=== PATIENT | female | born 2000 | race Caucasian/White ===

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

== ENCOUNTER → 2020-01-03 | Outpatient (CLI) | payer OTHER ==
[2020-01-03 09:01] LABS: BASOPHILS ABSOLUTE AUTO 0.02 K/mm3 (0.00-0.23); BASOPHILS PERCENT AUTO 0 % (0-2); EOSINOPHILS ABSOLUTE AUTO 0.02 K/mm3 (0.00-0.68); EOSINOPHILS PERCENT AUTO 0 % (0-6); Hematocrit 38.7 % (33.0-51.0); Hemoglobin 13.9 g/dL (11.5-16.0); IMMATURE GRAN ABSOLUTE AUTO 0.04 K/mm3 (0.00-0.10); IMMATURE GRAN PERCENT AUTO 0 % (0-1); LYMPHOCYTES ABSOLUTE AUTO 1.87 K/mm3 (0.84-5.20); LYMPHOCYTES PERCENT AUTO 17 % (21-46); MONOCYTES ABSOLUTE AUTO 0.54 K/mm3 (0.16-1.47); MONOCYTES PERCENT AUTO 5 % (4-13); Mean Corpuscular HGB 32.9 pg (26.0-34.0); Mean Corpuscular HGB Conc 35.9 g/dL (31.5-36.5); Mean Corpuscular Volume 92 fL (80-100); NEUTROPHILS ABSOLUTE AUTO 8.34 K/mm3 (1.96-9.15); NEUTROPHILS PERCENT AUTO 77 % (41-73); Platelet Count 314 K/mm3 (150-400); RDW Coefficient Variation 12.2 % (11.7-14.2); RDW Standard Deviation 40.6 fL (35.1-46.3); Red Blood Cell Count 4.23 M/mm3 (3.80-5.20); White Blood Cell Count 10.83 K/mm3 (4.00-11.30)
== END ==
LOC: LAB SHORT 08:58 → LAB EV 08:58
PROVIDERS: Physician Assistant
DX: R10.9 Unspecified abdominal pain (principal)
CPT/HCPCS: 85025

== ENCOUNTER → 2020-01-03 | Outpatient (CLI) | payer OTHER | END | disposition home or self-care (01) | LOC: LAB EV 09:48 → LAB SHORT 09:48 | DX: N39.0 Urinary tract infection, site not specified (principal) | CPT/HCPCS: 87086 ==

== ENCOUNTER 2022-02-07 06:46 | Day surgery (SDC) | payer OTHER ==
[~2022-02-07] VITALS: Ht 160 cm; Wt 56.6 kg
== END 2022-02-07 09:16 | disposition home or self-care (01) ==
LOC: ORSCSDS 06:46
PROVIDERS: Student in an Organized Health Care Education/Training Program
PROC: 0DBN8ZX Excision of Sigmoid Colon, Via Natural or Artificial Opening Endoscopic, Diagnostic (ICD-10-PCS; principal; 2022-02-07 08:00)
PROC: 0DB78ZX Excision of Stomach, Pylorus, Via Natural or Artificial Opening Endoscopic, Diagnostic (ICD-10-PCS; principal; 2022-02-07 08:00)
DX: Z15.09 Genetic susceptibility to other malignant neoplasm (principal); R10.9 Unspecified abdominal pain; Z80.0 Family history of malignant neoplasm of digestive organs; R19.4 Change in bowel habit; F41.9 Anxiety disorder, unspecified; K44.9 Diaphragmatic hernia without obstruction or gangrene; Z79.899 Other long term (current) drug therapy
CPT/HCPCS: 88305; 88342; J2250; J2704; J7120

== ENCOUNTER 2023-02-13 06:30 | Day surgery (SDC) | payer OTHER ==
[~2023-02-13] VITALS: Ht 160 cm; Wt 59.6 kg
[2023-02-13] MEDS ORDERED: LINZESS72 MCG (06:54)
[2023-02-13 11:05] VITALS: BP 126/87
== END 2023-02-13 09:10 | disposition home or self-care (01) ==
LOC: ORSCSDS 06:30
PROVIDERS: Student in an Organized Health Care Education/Training Program
PROC: 0DBN8ZX Excision of Sigmoid Colon, Via Natural or Artificial Opening Endoscopic, Diagnostic (ICD-10-PCS; principal; 2023-02-13 08:00)
DX: Z15.09 Genetic susceptibility to other malignant neoplasm (principal); Z80.0 Family history of malignant neoplasm of digestive organs; K59.09 Other constipation; F41.8 Other specified anxiety disorders; L53.9 Erythematous condition, unspecified; Z79.899 Other long term (current) drug therapy
CPT/HCPCS: 88305; J2704; J7120

== ENCOUNTER 2023-04-17 06:27 | Day surgery (SDC) | payer OTHER ==
[~2023-04-17] VITALS: Ht 160 cm; Wt 60.5 kg
[~2023-04-17 06:27] MED LIST changes: +LINZESS72 MCG
--- NOTE | 2023-04-17 08:24 | NUR ---
04/17/23 0824 Zena Triana ROPIVACAINE 0.5% 2O MLS MIXED & VERIFIED WITH EPI 0.20 ML (1MG/ML) PER ORDER TO MAKE ROPIVACAINE 0.5% 1:200,000 FOR INJECTION AT INCISION SITE BY DR MONTGOMERY. MULTI DOSE BOTTLE, 10 MLS INJECTED.
[2023-04-17 09:19] VITALS: BP 129/69
--- NOTE | 2023-04-17 09:40 | NUR ---
04/17/23 0940 Earline Steen PTS FAMILY IS AT BEDSIDE. PT IS EATING AND APPEARS TO BE COMFORTABLE. GIVING PT A PAIN PILL SO THAT SHE IS MEDICATED BEFORE GOING HOME TODAY.
== END 2023-04-17 10:02 | disposition home or self-care (01) ==
LOC: ORSCSDS 06:27
PROVIDERS: Obstetrics & Gynecology
PROC: 0UT74ZZ Resection of Bilateral Fallopian Tubes, Percutaneous Endoscopic Approach (ICD-10-PCS; principal; 2023-04-17 08:00)
DX: Z30.2 Encounter for sterilization (principal); N80.30 Endometriosis of pelvic peritoneum, unspecified
CPT/HCPCS: 88302; A9270; J0171; J0690; J2795

== ENCOUNTER 2024-03-01 06:11 | Day surgery (SDC) | payer OTHER ==
[2024-03-01] VITALS (12 sets, daily range): BP systolic 108–139; BP diastolic 60–84
[~2024-03-01] VITALS: Ht 160 cm; Wt 52.3 kg
[2024-03-01] MEDS ORDERED: CeFAZolin Sodium 2,000 MG in NS 100 ML IV SCH (06:20)
[2024-03-01] MEDS ORDERED: Lactated Ringer's 1,000 ML IV SCH ×2 (06:20→09:40)
[2024-03-01] MEDS ORDERED: IBUP200 PO (06:28)
[2024-03-01] MEDS ORDERED: propofoL 20 ML IV ONE (06:53)
[2024-03-01] MEDS ORDERED: Rocuronium Bromide 10 MG/ML 5ML Injection IV ONE (06:54)
[2024-03-01] MEDS ORDERED: Bupivacaine 0.5% HCl 5 MG/ML 30MLVIAL ONE (07:10)
[2024-03-01] MEDS ORDERED: FentaNYL Citrate 50 MCG/ML 2 ML Injection ONE ×2 (07:28→08:12)
[2024-03-01] MEDS ORDERED: HYDROmorphone HCl/Pf 1MG SYR ONE (07:43)
[2024-03-01] MEDS ORDERED: Dexamethasone Sod Phos 10 MG/ML 1ML VIAL ONE (07:56)
[2024-03-01] MEDS ORDERED: Ondansetron HCl 2 MG / ML 2ML Vial ONE (07:56)
[2024-03-01] MEDS ORDERED: Metoclopramide HCl 5MG / ML 2ML Vial ONE (07:56)
[2024-03-01] MEDS ORDERED: Ketorolac Tromethamine 30mg Vial ONE (09:00)
[2024-03-01] MEDS ORDERED: Sugammadex Sodium 200 MG/2ML SDV (100 MG/ML) ONE (09:01)
[2024-03-01] MEDS ORDERED: DiphenhydrAMINE HCL 25 MG Cap PO PRN (09:35)
[2024-03-01] MEDS ORDERED: HYDROmorphone HCl/Pf 1MG SYR IV PRN (09:40)
[2024-03-01] MEDS ORDERED: Metoclopramide HCl 5MG / ML 2ML Vial IV PRN (09:40)
[2024-03-01] MEDS ORDERED: Naloxone HCl 0.4MG / ML 1ML Vial IV PRN (09:40)
[2024-03-01] MEDS ORDERED: Polyethylene Glycol 3350 17 gm PO PRN (09:45)
[2024-03-01] MEDS ORDERED: Ondansetron HCl 2 MG / ML 2ML Vial IV PRN (09:45)
[2024-03-01] MEDS ORDERED: Simethicone 80 MG Chew PO PRN (09:45)
[2024-03-01] MEDS ORDERED: OxyCODONE HCL 5 MG TAB PO PRN ×2 (09:45)
[2024-03-01] MEDS ORDERED: Estradiol 0.1 MG/24 HR Patch ONE (10:04)
[2024-03-01] MEDS ORDERED: Ketorolac Tromethamine 30mg Vial IV SCH (12:00)
[2024-03-01] MEDS ORDERED: Estradiol 0.1 MG/24 HR Patch TOP SCH (12:00)
[2024-03-01] MEDS ORDERED: Acetaminophen 500 MG Tab PO SCH (12:00)
--- NOTE | 2024-03-01 14:31 | NUR ---
DISCHARGE PT A&OX4, VSS/RA, VENKAT PO, VOIDING, AMB INDEPENDENTLY/DRESSED SELF, PAIN MANAGED, IV DC'D. DC INS PROVIDED. PT AND MOM/BF REP UNDERSTANDING THOSE INS, REP MEDS AVAILABLE AT [facility]. LEFT FLOOR WITH ALL PERSONAL POSSESSIONS INCLUDING DC PACKET.
[2024-03-02] MEDS ORDERED: Enoxaparin 40 MG/0.4 ML SYR SC SCH (09:00)
== END 2024-03-01 14:00 | disposition home or self-care (01) ==
LOC: ORSCMMR 06:11 → ORD 07:30 → ORSCMMR 07:30 → SURS 10:16 → ORSCMMR 14:00
PROVIDERS: Obstetrics & Gynecology
PROC: 0UT9FZZ Resection of Uterus, Via Natural or Artificial Opening With Percutaneous Endoscopic Assistance (ICD-10-PCS; principal; 2024-03-01 07:30)
PROC: 0UT2FZZ Resection of Bilateral Ovaries, Via Natural or Artificial Opening With Percutaneous Endoscopic Assistance (ICD-10-PCS; principal; 2024-03-01 07:30)
DX: Z15.09 Genetic susceptibility to other malignant neoplasm (principal); N94.89 Other specified conditions associated with female genital organs and menstrual cycle; N83.11 Corpus luteum cyst of right ovary; F32.A Depression, unspecified
CPT/HCPCS: 86850; 86900; 86901; 88307; A9270; J0690; J1100; J1170; J1885; J2405; J2704; J2765; J3010; J7120